=== PATIENT | female | born 2000 | race Caucasian/White ===

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

== ENCOUNTER 2023-03-27 07:41 | Emergency (ER) | payer MEDICAID, OTHER ==
[~2023-03-27] VITALS: Ht 154.9 cm; Wt 98.9 kg
[2023-03-27 07:48] VITALS: BP 121/79; PULSE 100; RESP 15; TEMP 98; O2SAT 96
[2023-03-27] MEDS ORDERED: ONDANSETRON 4 MG ODT PO ONE (08:10)
[2023-03-27] MEDS ORDERED: KETOROLAC 60 MG/2 ML VIAL IM ONE (08:10)
[2023-03-27] MEDS ORDERED: ONDA8TAB87 PO (08:16)
[2023-03-27] MEDS ORDERED: DIPH25TA53 PO (08:16)
[2023-03-27] MEDS ORDERED: PRED20TA5 PO (08:16)
== END 2023-03-27 08:48 | disposition home or self-care (01) ==
LOC: MED 07:41
DX: R21 Rash and other nonspecific skin eruption (principal); R42 Dizziness and giddiness; R11.0 Nausea; Z79.899 Other long term (current) drug therapy
CPT/HCPCS: 96372; 99283; J1885; Q0162